=== PATIENT | male | born 2000 | race Caucasian/White ===

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

== ENCOUNTER 2022-02-25 09:29 | Emergency (ER) | payer OTHER, SELFPAY ==
[2022-02-25 09:38] VITALS: BP 140/80; PULSE 110; RESP 16; TEMP 36.8; O2SAT 99
--- NOTE | 2022-02-25 09:39 | ED.GENADULT ---
HPI - General Adult General Chief complaint: Unspecified Stated complaint: Body Aches Time Seen by Provider: 02/25/22 09:39 Source: patient, RN notes reviewed and old records reviewed Mode of arrival: ambulatory Limitations: no limitations History of Present Illness HPI narrative: 22-year-old male presents to the [facility] with complaints of body aches. Patient reports starting with generalized body aches and headache since yesterday. Has taken [id number] cold medication. Denies fevers, chest pain, abdominal pain. No nausea vomiting or diarrhea. Patient states that his brother tested positive for influenza A and would like to be tested. Denies coughs. Reports being both influenza and Covid vaccinated Related Data Home Medications Medication Instructions Recorded Confirmed No Home Medications 02/25/22 02/25/22 Allergies Allergy/AdvReac Type Severity Reaction Status Date / Time No Known Allergies Allergy Mild Verified 02/25/22 09:37 Review of Systems Review of Systems: All systems reviewed & are unremarkable except as noted in HPI and below Constitutional: Constitutional: Reports as per HPI, Denies chills, Reports fatigue and Denies fever(s) Eyes: Eyes: Reports no additional eye complaints ENT: Reports system reviewed and no additional complaints, except as documented, Denies nasal congestion and Denies sore throat Cardiovascular: Cardiovascular: Reports no additional cardiovascular complaints Respiratory: Respiratory: Reports no additional respiratory complaints, Denies cough and Denies dyspnea Gastrointestinal: Gastrointestinal: Reports no additional gastrointestinal complaints, Denies abdominal pain, Denies nausea and Denies vomiting Musculoskeletal: Musculoskeletal: Reports as per HPI and Reports myalgias Integumentary/Breasts: Skin/Breast: Reports system reviewed and no additional complaints, except as docu Neurologic: Reports system reviewed and no additional complaints, except as documented Psychiatric: Psychiatric: Reports no additional psychiatric complaints Allergic/Immunologic: Allergic/Immunologic: Reports no additional allergic/immunologic complaints PMFSH Past Medical History Medical History Axillary hyperhidrosis Thalassemia minor Family History Family History Father Hypertension Mother Asthma Social History Social History Smoking status: Never smoker Alcohol intake: never Substance use: never Substance use type: does not use Additional occupation/education comments: land scaping Gender identity (if verbalized by the patient): Male Agree to blood products: Yes Comments At the time of my signature, I reviewed and agree with the nursing past medical, surgical, social, and family history. There is no relevant family history pertinent to the patient complaint. Exam Const: General: healthy appearing, no acute distress and alert Nutritional Appearance: well nourished Orientation/consciousness: patient oriented x3 Limitations: no limitations HENMT: Head: normal to inspection Ears: external ears normal, TM's normal bilaterally and EAC's normal Eyes: Conjunctivae: conjunctivae normal Pupils: Equal, round and reactive pupils present Neck: Neck: normal visual inspection, no lymphadenopathy and no meningeal signs Chest: Chest palpation & inspection: normal inspection of the chest Resp: Effort & Inspection: normal respiratory effort and no use of accessory muscles Auscultation: clear to auscultation bilaterally, no crackles, no rales, no rhonchi and no wheezes Cardio: Rate: regular rate Rhythm: regular rhythm GI: GI Palp: Yes Soft to palpation and No Tenderness to palpation present (GI) Skin: General skin exam: normal color Rashes: no rashes Wounds: no wounds Neuro: General: patient o
[2022-02-25 09:44] VITALS: BP 140/80; PULSE 110; RESP 16; TEMP 36.8; O2SAT 99
== END 2022-02-25 10:10 | disposition home or self-care (01) ==
PROVIDERS: Emergency Provider Nurse Practitioner; PCP Family Medicine
DX: B34.9 Viral infection, unspecified (principal)
CPT/HCPCS: 87804; 99213; G0463

== ENCOUNTER 2022-09-30 10:13 | Emergency (ER) | payer OTHER, SELFPAY ==
[2022-09-30 10:22] VITALS: BP 139/61; PULSE 111; RESP 16; TEMP 36.8; O2SAT 98
--- NOTE | 2022-09-30 11:00 | ED.URI ---
HPI - URI/Sore Throat General Chief Complaint: Upper Respiratory Infection Stated Complaint: cough Time Seen by Provider: 09/30/22 11:00 Source: patient, RN notes reviewed and old records reviewed Mode of arrival: ambulatory Limitations: no limitations History of Present Illness HPI Narrative: 22-year-old male presents to the [facility] complaints of and chest congestion for 5 days. States he came in today because he woke up with sore throat, does not have 1 currently. Denies fevers. Denies chest pain or abdominal pain. States he tried a couple up [id number] products and has not gotten complete relief. Related Data Home Medications Medication Instructions Recorded Confirmed No Home Medications 02/25/22 09/30/22 Allergies Allergy/AdvReac Type Severity Reaction Status Date / Time No Known Allergies Allergy Mild Verified 02/25/22 09:37 Review of Systems Review of Systems: All systems reviewed & are unremarkable except as noted in HPI and below Constitutional: Constitutional: Reports no additional constitutional complaints, Denies chills and Denies fever(s) Eyes: Eyes: Reports no additional eye complaints ENT: Reports as per HPI and Reports nasal congestion Cardiovascular: Cardiovascular: Reports no additional cardiovascular complaints Respiratory: Respiratory: Reports as per HPI, Reports chest congestion and Reports cough Gastrointestinal: Gastrointestinal: Reports no additional gastrointestinal complaints Musculoskeletal: Musculoskeletal: Reports no additional musculoskeletal complaints Integumentary/Breasts: Skin/Breast: Reports system reviewed and no additional complaints, except as docu Neurologic: Reports system reviewed and no additional complaints, except as documented Psychiatric: Psychiatric: Reports no additional psychiatric complaints Allergic/Immunologic: Allergic/Immunologic: Reports no additional allergic/immunologic complaints [facility] Past Medical History Medical History Axillary hyperhidrosis Thalassemia minor Family History Family History Father Hypertension Mother Asthma Social History Social History Smoking status: Never smoker Alcohol intake: never Substance use: never Substance use type: does not use Additional occupation/education comments: land scaping Gender identity (if verbalized by the patient): Male Agree to blood products: Yes Comments At the time of my signature, I reviewed and agree with the nursing past medical, surgical, social, and family history. There is no relevant family history pertinent to the patient complaint. Exam Const: General: healthy appearing, no acute distress, alert and well nourished Nutritional Appearance: well nourished Orientation/consciousness: patient oriented x3 Limitations: no limitations HENMT: Head: normal to inspection Ears: external ears normal, TM's normal bilaterally and EAC's normal Face/Nose/Sinus: Normal external nose present and Normal nares present Face and sinus: normal facial exam Mouth: Yes Normal oral and palatal mucosa present, Yes lip normal and Yes moist mucous membranes Throat: posterior oropharynx normal and uvula midline Eyes: General: appearance normal, both eyes and all related structures Pupils: Equal, round and reactive pupils present Neck: Neck: normal visual inspection, no lymphadenopathy and no meningeal signs Chest: Chest palpation & inspection: normal inspection of the chest Resp: Effort & Inspection: normal respiratory effort and no use of accessory muscles Auscultation: clear to auscultation bilaterally, no crackles, no rales, no rhonchi and no wheezes Cardio: Rate: regular rate Rhythm: regular rhythm Skin: General skin exam: normal color Rashes: no rashes Wounds: no wounds Neuro: General: patient oriente
== END 2022-09-30 11:14 | disposition home or self-care (01) ==
PROVIDERS: Emergency Provider Nurse Practitioner; PCP Family Medicine
DX: J01.90 Acute sinusitis, unspecified (principal); D56.3 Thalassemia minor
CPT/HCPCS: 99211; G0463

== ENCOUNTER 2022-12-29 20:14 | Outpatient (NON) | payer OTHER, SELFPAY | END 2022-12-29 20:15 | disposition home or self-care (01) | PROVIDERS: Visit Provider Nurse Practitioner | DX: N50.812 Left testicular pain (principal) | CPT/HCPCS: 87491; 87591 ==

== ENCOUNTER → 2022-12-30 08:20 | Outpatient (CLI) | payer OTHER, SELFPAY ==
--- NOTE | ~2022-12-30 | US_ITS ---
EXAMINATION: US scrotum doppler DATE: 12/30/2022 08:47 INDICATION: Left testicular pain for one month. TECHNIQUE: Grayscale and Doppler ultrasound images of the testes were obtained. COMPARISON: None. FINDINGS: The right testis measures 5.0 x 2.5 x 3.0 cm. The left testis measures 5.2 x 2.7 x 2.7 cm. There is a 9 mm cyst in the left tunica albuginea. There is normal vascular flow to both testes. The right epididymis is normal with normal vascular flow. The left epididymis demonstrates 2 cysts with t he larger measuring 5 mm. There is no varicocele or hydrocele. IMPRESSION: 1. No etiology for the patient's symptoms. Reviewed, dictated and finalized at location A. [employer]PERATIONS ANALYST
== END ==
PROVIDERS: PCP Family Medicine; Visit Provider Nurse Practitioner
DX: N50.812 Left testicular pain (principal)
CPT/HCPCS: 76870; 93976

== ENCOUNTER 2023-01-07 13:29 | Emergency (ER) | payer OTHER, SELFPAY ==
[2023-01-07 13:37] VITALS: BP 136/52; PULSE 83; RESP 18; TEMP 36.6; O2SAT 100
--- NOTE | 2023-01-07 13:53 | ED.UPPEXIN ---
HPI - Extremity Injury (Upper) General Chief Complaint: Extremity Injury, Upper Stated Complaint: right forearm swelling/pain Time Seen by Provider: 01/07/23 13:40 Source: patient Mode of arrival: ambulatory Limitations: no limitations History of Present Illness HPI narrative: Kal is a 22-year-old male patient presenting to the clinic today with complaints of right wrist/forearm pain x1 day. 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 He thinks that maybe some of the vibration has caused his wrist pain. He has tenderness along the radial wrist that is radiating up into the forearm Related Data Allergies Allergy/AdvReac Type Severity Reaction Status Date / Time No Known Allergies Allergy Mild Verified 01/07/23 13:36 Review of Systems Review of Systems: Pertinent positives per HPI. Patient denies any fever, chills, rash, headache, visual changes, dizziness, cough, runny nose, sore throat, shortness of breath, chest pain, palpitations, nausea, vomiting, diarrhea, constipation, abdominal pain, or any urinary issues. [facility] Past Medical History Medical History Axillary hyperhidrosis Thalassemia minor Family History Family History Father Hypertension Mother Asthma Social History Social History Smoking status: Never smoker Alcohol intake: never Substance use: never Substance use type: does not use Lack of Transportation: No Lack of Food: Never True Current Housing: I Have Housing Concerned About Future Housing: No Difficulty Paying Gas/Electric Bills: No Difficulty Paying for Meds: No Currently Unemployed: No Education: High School Diploma/GED Difficulty w/ Childcare or Family Care: No Living arrangements: with family Occupation/Education: occupation Additional occupation/education comments: land scaping Gender identity (if verbalized by the patient): Male Agree to blood products: Yes Comments At the time of my signature, I reviewed and agree with the nursing past medical, surgical, social, and family history. There is no relevant family history pertinent to the patient complaint. Exam Narrative: General: Well-developed, well nourished, in no apparent distress Head: Normocephalic, atraumatic. Cardio: Regular rate and rhythm, s1 and s2 normal, no murmur appreciated. Resp: Clear to auscultation bilaterally, no rhonchi, rales, wheezing or rubs. Musculoskeletal: No deformity, mild tenderness to palpation over the radial wrist and distal forearm, grossly normal range of motion was slight pain with flexion and extension of the wrist over the radius, negative Tinel's and Phalen's testing, muscle strength strong and equal, peripheral pulse strong, no edema, no cyanosis, normal gait and station Course Course Emergency Course: Portions of this record may have been created with voice recognition software. Level of Care: Express Care Visit Vital Signs Vital signs: Vital Signs Temperature 36.6 C 01/07/23 13:37 Pulse Rate 83 01/07/23 13:37 Respiratory Rate 18 01/07/23 13:37 Blood Pressure 136/52 L 01/07/23 13:37 Pulse Oximetry 100 01/07/23 13:37 Oxygen Delivery Room Air 01/07/23 13:37 Temperature 36.6 C 01/07/23 13:37 Pulse Rate 83 01/07/23 13:37 Respiratory Rate 18 01/07/23 13:37 Blood Pressure 136/52 L 01/07/23 13:37 Pulse Oximetry 100 01/07/23 13:37 Oxygen Delivery Room Air 01/07/23 13:37 Vital signs reviewed MDM - Extremity Injury (Upper) MDM Narrative Medical decision making narrative: At the time of visit patient is resting comfortably on the exam table. I suspect patient has wrist tendinitis. Supportive measures were discussed wi
== END 2023-01-07 14:06 | disposition home or self-care (01) ==
PROVIDERS: Emergency Provider Nurse Practitioner Family; PCP Family Medicine
DX: M77.8 Other enthesopathies, not elsewhere classified (principal)
CPT/HCPCS: 99213; G0463

== ENCOUNTER 2024-05-14 01:44 | Emergency (ER) | payer OTHER, SELFPAY ==
[2024-05-14 01:51] VITALS: BP 144/72; PULSE 80; RESP 20; TEMP 37.1; O2SAT 100
--- NOTE | 2024-05-14 02:55 | ED.GENADULT ---
HPI - General Adult General Chief complaint: Extremity Injury, Upper Stated complaint: left shoulder pain Time Seen by Provider: 05/14/24 02:00 History of Present Illness HPI narrative: This is a 24-year-old male presenting with bilateral shoulder pain. Patient says over last several days he has been working with his dad doing physical labor like carrying boards for their dec and holding a ceiling fan up above his head while it was installed. Tonight he developed an aching pain in both of his trapezius. He tried to have his sister massaged out it was painful when she squeezed his traps. He took 400 mg of ibuprofen prior to arrival. At this time the patient is pain-free and cannot elicit any soreness of his shoulders. He denies chest pain difficulty breathing trauma cough fevers or any other complaints. Related Data Allergies Allergy/AdvReac Type Severity Reaction Status Date / Time No Known Allergies Allergy Mild Verified 05/14/24 01:54 [facility] Past Medical History Medical History Axillary hyperhidrosis Dyslipidemia School physical exam Thalassemia minor Family History Family History Father Hypertension Mother Asthma Social History Social History Social History: Caffeine-daily Smoking status: Never smoker Alcohol intake: current Drinks per week: 1 Substance use: never Substance use type: does not use Lack of Transportation: No Lack of Food: Never True Current Housing: I Have Housing Concerned About Future Housing: No Difficulty Paying Gas/Electric Bills: No Difficulty Paying for Meds: No Currently Unemployed: No Education: Associate Degree Difficulty w/ Childcare or Family Care: No Living arrangements: with family Occupation/Education: occupation Additional occupation/education comments: land scaping Gender identity (if verbalized by the patient): Male Agree to blood products: Yes Exam Narrative: APPEARANCE: No apparent distress. Head: atraumatic. EYES: EOMI, NOSE: Atraumatic NECK: Trachea midline RESPIRATORY: No increased rate of breathing , clear to auscultation CARDIOVASCULAR: RRR, ABDOMINAL: Non-distended MUSCULOSKELETAl: No reproducible tenderness over the patient's trapezius or paraspinal muscles. No overlying skin changes. No pain on active or passive range of motion. NEURO: Alert. Moving 4/4 extremities SKIN:: Warm, dry. Normal color PSYCHIATRIC: Normal affect Course Vital Signs Vital signs: Vital Signs Temperature 98.7 F 05/14/24 01:51 Pulse Rate 80 05/14/24 01:51 Respiratory Rate 05/14/24 01:51 Blood Pressure 144/72 H 05/14/24 01:51 Pulse Oximetry 100 05/14/24 01:51 Oxygen Delivery Room Air 05/14/24 01:51 Temperature 98.7 F 05/14/24 01:51 Pulse Rate 80 05/14/24 01:51 Respiratory Rate 20 05/14/24 01:51 Blood Pressure 144/72 H 05/14/24 01:51 Pulse Oximetry 100 05/14/24 01:51 Oxygen Delivery Room Air 05/14/24 01:51 Medical Decision Making MDM Narrative Medical decision making narrative: -Course: 24-year-old presenting with bilateral shoulder pain after several days of physical labor. the time of my history and physical the patient's pain has resolved. No physical exam findings. patient has stable vital signs and is very well appearing. Patient will be given Tylenol, muscle relaxer. He will be provided prescriptions. Primary care follow-up and return precautions given. -DDX includes but is not limited to: Muscle strain, muscle sprain -Interventions: Tylenol, Robaxin -Shared decision making / Disposition: discharge -RX Motrin Tylenol Robaxin Vital Signs Vital Signs: Vital Signs Temperature 98.7 F 05/14/24 01:51 Pulse Rate 80 05/14/24 01:51 Respiratory Rate 05/14/24 01:51 Blood Pressure 144/72 H
[2024-05-14] MEDS: methocarbamoL 750 MG TABLET 1500 MG PO (03:04)
[2024-05-14] MEDS: ACETAMINOPHEN 500 MG TABLET 1000 MG PO (03:04)
[2024-05-14 03:08] VITALS: BP 142/78; PULSE 76; RESP 18; O2SAT 99
== END 2024-05-14 03:08 | disposition home or self-care (01) ==
PROVIDERS: Emergency Provider Emergency Medicine; PCP Family Medicine
DX: S46.812A Strain of other muscles, fascia and tendons at shoulder and upper arm level, left arm, initial encounter (principal); S46.811A Strain of other muscles, fascia and tendons at shoulder and upper arm level, right arm, initial encounter; E78.5 Hyperlipidemia, unspecified; X50.0XXA Overexertion from strenuous movement or load, initial encounter; X50.1XXA Overexertion from prolonged static or awkward postures, initial encounter
CPT/HCPCS: 99283; A9270

== ENCOUNTER 2024-10-01 08:25 | Emergency (ER) | payer OTHER, SELFPAY ==
[2024-10-01 08:34] VITALS: BP 145/91; PULSE 91; RESP 16; TEMP 35.8; O2SAT 99
--- NOTE | 2024-10-01 08:49 | ED.GENADULT ---
HPI - General Adult General Chief complaint: Extremity Problem,Nontraumatic Stated complaint: right leg pain Source: patient Mode of arrival: ambulatory Limitations: no limitations History of Present Illness HPI narrative: Patient presents for evaluation of pain in the right calf for the last 2 weeks. his symptoms started after walking up a hill. He felt a strain in the right hamstring with dorsiflexion while walking. He has experienced a pulling sensation in the right calf since that time. He rates his symptoms 5/10 in severity, worse with weightbearing. N o redness or swelling. He tried taking methocarbamol and Tylenol for symptoms. He does not smoke. No personal or family history of DVT or PE. Related Data Allergies Allergy/AdvReac Type Severity Reaction Status Date / Time No Known Allergies Allergy Mild Verified 10/01/24 08:34 Review of Systems Review of Systems: CONSTITUTIONAL: Denies fever, chills, or sweats. EYES: Denies visual changes, redness, or discharge. ENT: Denies rhinorrhea, congestion, sore throat, or otalgia. CARDIOVASCULAR: Denies chest pain, palpitations, or edema. RESPIRATORY: Denies cough or dyspnea. GASTROINTESTINAL: Denies abdominal pain, nausea, vomiting, or diarrhea. GENITOURINARY: Denies dysuria or hematuria. SKIN: Denies rash or itching. MUSCULOSKELETAL:Reports right calf pain. Denies joint pain NEUROLOGIC: Denies headache, numbness, dizziness, or weakness. PSYCHIATRIC: Denies anxiety or depression. [facility] Past Medical History Medical History (Updated 10/01/24 @ 09:02 by LOLA Pace, ) Axillary hyperhidrosis Dyslipidemia Thalassemia minor Surgical History Surgical History No pertinent past surgical history Family History Family History Father Hypertension Mother Asthma Social History Social History Social History: Caffeine-daily Smoking status: Never smoker Alcohol intake: current Drinks per week: 1 Substance use: never Substance use type: does not use Lack of Transportation: No Lack of Food: Never True Current Housing: I Have Housing Concerned About Future Housing: No Difficulty Paying Gas/Electric Bills: No Difficulty Paying for Meds: No Currently Unemployed: No Education: Associate Degree Difficulty w/ Childcare or Family Care: No Living arrangements: with family 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 HEAD: Normocephalic, atraumatic. EYES: PERRLA and EOMI. ENT: Nares clear, no rhinorrhea or epistaxis. Mucous membranes moist. Oropharynx without tonsillar hypertrophy exudate or other lesions. Bilateral TMs pearly roland nonbulging NECK: Supple. No adenopathy or masses. No carotid bruits or JVD CHEST: Clear to auscultation. No respiratory distress. No wheezes rales or rhonchi HEART: Regular rate and rhythm. No murmur heard. Normal peripheral pulses. ABDOMEN: Soft, nontender, nondistended, normal active bowel sounds. EXTREMITIES: There is mild tenderness in posterior calf. No cords. Negative Quarles's test SKIN: Warm, dry, no rash. NEURO: No focal deficits. Alert and oriented x3. PSYCH: Normal mood and affect. Course Course Emergency Course: This is a 24-year-old male who presented for evaluation of pain in the right calf. Exam is consistent with hamstring strain. Negative Quarles's test. Recommend NSAIDs and methocarbamol for symptom control. Follow up with primary provider. Go to the ER for worsening symptoms. Pt in agreement with plan of care. Level of Care: Express Care Visit Vital Signs Vital signs: Vital Signs Temperature 35.8 C L 10/01/24 08:34 Pulse Rate 91 10/01/24 08:34 Respiratory Rate 16 10/01/24 08:34 Blood Pressure 145/91 H 10/01/24 08:34 Pulse Oximetry 99 10/01/24 08:34 Oxygen Delivery Room Air 10/01/24 08:34 Temperature 35.8 C L 10/01/24 08:34 Pulse Rate 91 10/01/24 08:34 Respiratory Rate 16 10/01/24 08:34 Blood Pressure 145/91 H 10/01/24 08:34 Pulse Oximetry 99 10/01/24 08:34 Oxygen Delivery Room Air 10/01/24 08:34 Medical Decision Making Vital Signs Vital Signs: Vital Signs Temperature 35.8 C L 10/01/24 08:34 Pulse Rate 91 10/01/24 08:34 Respiratory Rate 16 10/01/24 08:34 Blood Pressure 145/91 H 10/01/24 08:34 Pulse Oximetry 99 10/01/24 08:34 Oxygen Delivery Room Air 10/01/24 08:34 Temperature 35.8 C L 10/01/24 08:34 Pulse Rate 91 10/01/24 08:34 Respiratory Rate 16 10/01/24 08:34 Blood Pressure 145/91 H 10/01/24 08:34 Pulse Oximetry 99 10/01/24 08:34 Oxygen Delivery Room Air 10/01/24 08:34 Discharge Plan Discharge Clinical Impression: Right hamstring muscle strain Patient Disposition: Home, Self-Care Condition: Stable Instructions: Antibiotic Form, Muscle Strain (ED) Patient Language: Jordanian Follow-up/Referrals: Foster Llanos MD [Primary Care Provider] - Stand Alone Forms: Work/School Release IP Time of Disposition: 08:48
== END 2024-10-01 08:56 | disposition home or self-care (01) ==
PROVIDERS: Emergency Provider Nurse Practitioner; PCP Family Medicine
DX: S76.311A Strain of muscle, fascia and tendon of the posterior muscle group at thigh level, right thigh, initial encounter (principal); Y93.01 Activity, walking, marching and hiking; E78.5 Hyperlipidemia, unspecified; D56.3 Thalassemia minor
CPT/HCPCS: 99212; G0463